=== PATIENT | female | born 1945 | race Two or more races ===

== ENCOUNTER 2017-10-21 09:07 | Outpatient (CLI) | payer MEDICARE, MEDICAID ==
[~2017-10-21 09:07] MED LIST: NKM
--- NOTE | 2017-10-21 10:27 | GI Initial Consult Note ---
History of Present Illness General Date patient seen: Oct 21, 2017 Time patient seen: 10:23 Referring physician: JONAS Reason for Consultation: SCREENING COLONOSCOPY Present Illness HPI Pleasant 72 year old female referred by Dr. Antoine for initial screening EGD/ colonoscopy. The patient with only history of asthma presents today with no acute GI symptoms. Denies any abdominal pain, N/V/D. States she has occasional acid reflux, however does not take any medication for it. No history of endoscopy / colonoscopy. Denies any unintentional weight loss or changes in dietary habits. No signs of abuse or neglect. Patient is not fall risk. Home Meds Reported Medications No Known Medications* (NKM - No Known Medications*) ., 0 ., 0 Refills 06/29/13 Med list reviewed/reconciled: Yes Allergies: Coded Allergies: NO KNOWN ALLERGIES (Unverified Allergy, 06/28/13) Patient History History Provided By: Patient, Family Member [facility] Narrative Asthma Past Surgical History: cholecystectomy - [id number] Pertinent Family History: none Social History: Reports: other - caffeine use Review of Systems All Other Systems: negative except mentioned in HPI Physical Exam T 97.9 BP 142/64 P 67 94 RA WT 155.9 lbs 5'0 Sp02 EP Interpretation: reviewed, normal General Appearance: well appearing, no apparent distress, alert Head: normocephalic EENT: PERRL/EOMI, normal ENT inspection Neck: supple Respiratory: normal breath sounds, no respiratory distress Cardiovascular: normal rate Gastrointestinal: normal inspection, non tender, soft, normal bowel sounds, non -distended Rectal: deferred Genitourinary: no CVA tenderness Musculoskeletal: normal inspection, back normal Neurologic: normal inspection, alert, oriented x3, responsive Psychiatric: normal inspection, judgement/insight normal, memory normal Skin: normal inspection, normal color, no rash, warm/dry, palpation normal, well hydrated Lymphatic: normal inspection, no adenopathy GI: Plan Problems: (1) Colonoscopy planned (2) Asthma Plan EGD/colonoscopy scheduled 10/31/17. - CLD & (Nulytely/Suprep/Movi-Prep) prep instructions given and acknowledged by patient. - NPO @ PA day prior procedure explained. Seen with Dr. Manuel. Thank you for this patient referral. The patient was seen and examined at bedside and all new and available data was reviewed in the patients chart. I agree with the above findings, impression and plan. (Patient seen earlier today. Signature stamp does not reflect patient encounter time.). - MD Ivette Reddy AnhMeagan HELLER Oct 21, 2017 10:27
[2017-10-21 14:07] VITALS: BP 142/64
== END 2017-10-21 09:40 | disposition home or self-care (01) ==
LOC: PAN 09:07
DX: K21.9 Gastro-esophageal reflux disease without esophagitis (principal); J45.909 Unspecified asthma, uncomplicated; Z90.49 Acquired absence of other specified parts of digestive tract
CPT/HCPCS: 99201

== ENCOUNTER 2017-10-31 07:13 | Day surgery (SDC) | payer MEDICARE, MEDICAID ==
[2017-10-31] VITALS (8 sets, daily range): BP systolic 107–149; BP diastolic 50–79
[~2017-10-31] VITALS: Ht 165.1 cm; Wt 70.0 kg
[2017-10-31] MEDS ORDERED: IBANDRONATE SO150 MG PO (07:50)
--- NOTE | 2017-10-31 08:11 | Anethesia Preoperative Eval ---
Anesthesia Pre-op PMH/ROS General Date of Evaluation: Oct 31, 2017 Anesthesiologist: Mo ASA Score: ASA 2 Mallampati Score Class I : Soft palate, uvula, fauces, pillars visible Class II: Soft palate, uvula, fauces visible Class III: Soft palate, base of uvula visible Class IV: Only hard plate visible Mallampati Classification: Class II Surgeon: Mar Diagnosis: Screening Surgical Procedure: EGD and colonoscopy Anesthesia History: none Family History: no anesthesia problems Allergies: Coded Allergies: NO KNOWN ALLERGIES (Unverified Allergy, 06/28/13) Medications: see eMAR Past Medical History Cardiovascular: Denies: HTN, CAD, AR, valve dz, arrhythmia, other Pulmonary: Reports: asthma; Denies: COPD, CESAR, other Gastrointestinal/Genitourinary: Reports: GERD; Denies: CRI, ESRD, other Neurologic/Psychiatric: Denies: dementia, CVA, depression/anxiety, TIA, other Endocrine: Denies: DM, hypothyroidism, steroids, other HEENT: Denies: cataract (L), cataract (R), glaucoma, DOUGLAS (L), DOUGLAS (R), other Hematology/Immune: Denies: anemia, DVT, bleeding disorder, other Musculoskeletal/Integumentary: Denies: OA, RA, DJD, DDD, edema, other PSxH Narrative: lumbar sx, lap ines Anesthesia Pre-op Phys. Exam Physician Exam Last Vital Signs Date Time Temp Pulse Resp B/P (MAP) Pulse Ox O2 Delivery O2 Flow Rate FiO2 10/31/17 07:45 97.6 67 18 145/77 97 Room Air 97.6 Constitutional: NAD Cardiovascular: RRR Respiratory: CTA Airway Exam Mallampati Score: Class II MO: full ROM: full Teeth: intact Anesthesia Pre-op A/P Labs see chart Studies Pre-op Studies: EKG - sr Risk Assessment & Plan Assessment: asa II Plan: MAC Status Change Before Surgery: No Pre-Antibiotics Drug: N/A RENATO DELGADO M.D. Oct 31, 2017 08:11
--- NOTE | 2017-10-31 08:44 | Immediate Post-Op Evaluation ---
Immediate Post-Op Evalulation Immediate Post-Op Evalulation Procedure: EGD and colonoscopy Date of Evaluation: Oct 31, 2017 Time of Evaluation: 10:10 IV Fluids: 300 Blood Products: 0 Estimated Blood Loss: 0 Urinary Output: 0 Blood Pressure Systolic: 113 Blood Pressure Diastolic: 65 Pulse Rate: 56 Respiratory Rate: 16 O2 Sat by Pulse Oximetry: 100 Temperature (Fahrenheit): 97 Pain Score (1-10): 0 Nausea: No Vomiting: No Complications 0 Patient Status: awake, reacts, patent, none Hydration Status: adequate Drug: N/A RENATO DELGADO M.D. Oct 31, 2017 08:44
[2017-10-31] MEDS ORDERED: Labetalol 5mg/ml 20ml vial IV PRN (08:45)
[2017-10-31] MEDS ORDERED: DiphenhydrAMINE 50mg/ml Inj IVP PRN (08:45)
--- NOTE | 2017-10-31 08:45 | 48 Hour Post Anesthesia Eval ---
Post Anesthesia Evaluation Procedure: EGD and colonoscopy Date of Evaluation: Oct 31, 2017 Airway: patent Nausea: No Vomiting: No Pain Intensity: 0 Hydration Status: adequate Cardiopulmonary Status: at baseluine Mental Status/LOC: patient returned to baseline Post-Anesthesia Complications: 0 Follow-up care needed: ready to discharge RENATO DELGADO M.D. Oct 31, 2017 08:45
--- NOTE | 2017-10-31 09:29 | Pre-Procedure Note/Attestation ---
Pre-Procedure Note/Attestation Complete Prior to Procedure Planned Procedure: not applicable Procedure Narrative: esophagogastroduodenoscopy and colonoscopy Indications for Procedure Pre-Operative Diagnosis: screening colon, GERD Attestation I attest that I discussed the nature of the procedure; its benefits; risks and complications; and alternatives (and the risks and benefits of such alternatives ), prior to the procedure, with the patient (or the patient's legal used equipment sales representative). I attest that, if there was a reasonable possibility of needing a blood transfusion, the patient (or the patient's legal used equipment sales representative) was given the [facility] standardized written summary, pursuant to the [place] Blood Safety Act ([place] Health and Safety Code # 1645, as amended). I attest that I re-evaluated the patient just prior to the surgery and that there has been no change in the patient's H&P, except as documented below: Hamilton Manuel MD Oct 31, 2017 09:29
--- NOTE | 2017-10-31 09:29 | Short Stay Surgery H&P ---
History of Present Illness History of Present Illness Chief Complaint see recent consult note HPI Ama Rowell is a 72 year old female who was admitted on for Gerd,Colon Screening Patient History Allergies: Coded Allergies: NO KNOWN ALLERGIES (Unverified Allergy, 06/28/13) Medication History Scheduled Ibandronate Sodium (Ibandronate Sodium), 150 MG PO every month, (Reported) Physical Exam Vital Signs Last Vital Signs Date Time Temp Pulse Resp B/P (MAP) Pulse Ox O2 Delivery O2 Flow Rate FiO2 10/31/17 07:45 97.6 67 18 145/77 97 Room Air 97.6 Plan Attestation Are the patient's medical conditions optimized for surgery? Hamilton Manuel MD Oct 31, 2017 09:29
[2017-10-31] MEDS ORDERED: Lidocaine 1% MPF 10mg/ml 5ml ONE (09:30)
[2017-10-31] MEDS ORDERED: LR 1000ml ONE (09:30)
[2017-10-31] MEDS ORDERED: Propofol 200mg/20ml IV ONE (09:30)
--- NOTE | 2017-10-31 10:08 | Endoscopy Procedure Note ---
Endoscopy Procedure Note General Indication for Procedure: screening colon, GERD Procedures Performed: EGD, colonoscopy Operative Findings/Diagnosis: gastritis, one colon polyp Specimen: yes Pt Tolerated Procedure Well: Yes Estimated Blood Loss: none Anesthesia Anesthesiologist: mao Anesthesia: MAC Inserted Devices Implant(s) used?: No GI Core Measures 50 yrs or older w/o bx or poly: Not Applicable 10yrs. F/U not recommended: Not Applicable Hamilton Manuel MD Oct 31, 2017 10:08
--- NOTE | 2017-10-31 12:00 | Procedure Note ---
DATE OF PROCEDURE: 10/31/2017 SURGEON: Hamilton Manuel M.D. ANESTHESIOLOGIST: Dr. Hassan. REFERRING PHYSICIAN: Dr. Antoine. PROCEDURE: Upper endoscopy with biopsy and colonoscopy with snare polypectomy. ANESTHESIA: Per Dr. Hassna. INSTRUMENT: Olympus adult flexible upper endoscope and colonoscope. INDICATION: Screening colonoscopy, chronic GERD. The procedure, risks, benefits, and possible consequences, including hemorrhage, aspiration, perforation and infection, and alternative treatments, were explained to the patient/legal guardian by Dr. Hamilton Manuel and the patient/legal guardian understood and accepted these risks. DESCRIPTION OF PROCEDURE: After informed consent was obtained and the patient was adequately sedated, Olympus upper endoscope was advanced from the mouth into the second portion of the duodenum and retroflexion was performed in the stomach. The patient had evidence of diffuse gastritis. Random biopsy from antrum and body was obtained to rule out H. pylori infection. GE junction was found to be at about 35 cm from the incisors. There was some irregularity at the Z-line. There were some changes in the mucosa of the esophagus with some rings and suspicious for eosinophilic esophagitis, but not classical. Biopsy from this area was also obtained. At this time, the upper endoscope was retrieved. The patient was turned over for colonoscopy. First rectal exam was performed which was normal. Then, the scope was advanced from the rectum to the terminal ileum. Quality of prep was great. Terminal ileum was normal. The patient had one sessile polyp in the transverse colon, measured roughly about 6 mm. This polyp was flat and removed with snare polypectomy technique. The rest of the colonic examination was grossly within normal limit. Retroflexion of rectum showed evidence of few small nonbleeding internal hemorrhoids. SUMMARY OF FINDINGS: 1. Questionable eosinophilic esophagitis, status post biopsy. 2. Irregular Z-line. 3. Gastritis, status post biopsy. 4. One colonic polyp removed, see above for details. 5. Small internal hemorrhoids. RECOMMENDATIONS: 1. Follow up biopsy results and treat accordingly. 2. We recommend repeat colonoscopy in 5 years. I want to thank, Dr. Antoine, for this kind referral. Hamilton Lazaro Manuel DR: Ap JOB#: [id number] CC: Heladio Antoine M.D.; Fax#: [phone]
--- NOTE | 2017-11-01 12:13 | Cardiology Report ---
APPROVED REPORT EKG Measurement Heart [id number] Normal sinus rhythm Normal ECG
== END 2017-10-31 11:20 | disposition home or self-care (01) ==
LOC: GAS 07:13
DX: Z12.11 Encounter for screening for malignant neoplasm of colon (principal); K21.9 Gastro-esophageal reflux disease without esophagitis; K29.70 Gastritis, unspecified, without bleeding; K63.5 Polyp of colon; K64.8 Other hemorrhoids; Z90.49 Acquired absence of other specified parts of digestive tract
CPT/HCPCS: 43239; 45380; 93005; J2704; J7120; 94003; 94150

== ENCOUNTER 2017-11-18 09:27 | Outpatient (CLI) | payer MEDICARE, MEDICAID ==
[~2017-11-18 09:27] MED LIST changes: +IBANDRONATE SO150 MG PO
[2017-11-18 09:50] VITALS: BP 100/77
--- NOTE | 2017-11-18 10:09 | GI Progress Note ---
Assessment/Plan Problems: (1) H. pylori infection ICD Codes: A04.8 - Other specified bacterial intestinal infections SNOMED: 912908813 Status: stable Status Narrative Seen with Dr. Manuel. Assessment/Plan SUMMARY OF FINDINGS reviewed with patient: 1. Questionable eosinophilic esophagitis, status post biopsy. 2. Irregular Z-line. 3. Gastritis, status post biopsy. 4. One colonic polyp removed. 5. Small internal hemorrhoids. RECOMMENDATIONS: 1. Follow up biopsy results and treat accordingly. >> H. Pylori positive - Amoxicillin 1g BID - Biaxin 500mb BID - Omeprazole 40mg x 2 weeks followed by Omeprazole 40mg PO daily x 6 weeks RTC x 3 month for repeat Breath Test The patient was seen and examined at bedside and all new and available data was reviewed in the patients chart. I agree with the above findings, impression and plan. (Patient seen earlier today. Signature stamp does not reflect patient encounter time.). - Hamilton Manuel MD 2. We recommend repeat colonoscopy in 5 years. Subjective Gastrointestinal/Abdominal: Reports: no symptoms Objective Last 24 Hour Vital Signs Date Time Temp Pulse Resp B/P (MAP) Pulse Ox O2 Delivery O2 Flow Rate FiO2 11/18/17 09:50 98.0 67 16 100/77 95 98.0 General Appearance: WD/WN, no apparent distress, alert Cardiovascular: normal rate Respiratory/Chest: normal breath sounds, no respiratory distress Abdominal Exam: normal bowel sounds, non tender, soft Extremities: normal range of motion, non-tender Geneva Steele [employer] Nov 18, 2017 10:09
== END 2017-11-18 10:00 | disposition home or self-care (01) ==
LOC: PAN 09:27
DX: K29.70 Gastritis, unspecified, without bleeding (principal); B96.81 Helicobacter pylori [H. pylori] as the cause of diseases classified elsewhere; K63.5 Polyp of colon; K64.8 Other hemorrhoids
CPT/HCPCS: 99212

== ENCOUNTER 2018-02-24 09:19 | Outpatient (CLI) | payer MEDICARE, MEDICAID ==
[2018-02-24 09:57] VITALS: BP 139/67
--- NOTE | 2018-02-24 09:57 | GI Progress Note ---
Assessment/Plan Problems: (1) GERD (gastroesophageal reflux disease) ICD Codes: K21.9 - Gastro-esophageal reflux disease without esophagitis SNOMED: 975969522 (2) H. pylori infection ICD Codes: A04.8 - Other specified bacterial intestinal infections SNOMED: [id number] Status: stable Status Narrative Discussed with Dr. Manuel. Assessment/Plan H. Pylori s/p Tx PPI daily RTC x3 months The patient was seen and examined at bedside and all new and available data was reviewed in the patients chart. I agree with the above findings, impression and plan. (Patient seen earlier today. Signature stamp does not reflect patient encounter time.). - Hamilton Manuel MD Subjective Subjective GERD Objective T 97.8 BP 139/67 P 60 96 RA General Appearance: WD/WN, no apparent distress, alert Cardiovascular: normal rate Respiratory/Chest: normal breath sounds, no respiratory distress Abdominal Exam: normal bowel sounds, non tender, soft Extremities: normal range of motion, non-tender Geneva Steele NP Feb 24, 2018 09:57
== END 2018-02-24 09:40 | disposition home or self-care (01) ==
LOC: PAN 09:19
DX: K21.9 Gastro-esophageal reflux disease without esophagitis (principal); A04.8 Other specified bacterial intestinal infections
CPT/HCPCS: 83013